=== PATIENT | male | born 2000 | race Caucasian/White ===

== ENCOUNTER 2019-10-30 16:06 | Emergency (ER) | payer BC ==
[~2019-10-30] VITALS: Ht 198.1 cm; Wt 98.9 kg
[2019-10-30 16:15] VITALS: BP 135/87
--- NOTE | 2019-10-30 16:24 | NUR ---
pt to ed. ambulatory. fell snowboarding. L low back pain. no bruise noted. fell backwards, hit back on icy spot. 10/10 pain, worse when moving. +CMS, neuros grossly intact, denies hitting head. no other complaints. A&Ox4 GCS 15. accomp by gf. awaiting md. call bahena in reach.
[2019-10-30] MEDS ORDERED: HYDROcodone/APAP 5/325 TABLET PO STA (16:47)
[2019-10-30] MEDS ORDERED: HYDROcodone/APAP 5/325 TABLET ONE (16:51)
[2019-10-30] MEDS ORDERED: CYCLOBENZAPRINE 10 MG TABLET PO STA (16:54)
[2019-10-30] MEDS ORDERED: CYCLOBENZAPRINE 10 MG TABLET ONE (16:55)
--- NOTE | 2019-10-30 17:05 | NUR ---
pt to and from rad
--- NOTE | 2019-10-30 17:31 | NUR ---
PA TO BEDSIDE TO DISCUSS RESULTS
== END 2019-10-30 18:00 | disposition home or self-care (01) ==
LOC: ED 17:55
DX: S39.012A Strain of muscle, fascia and tendon of lower back, initial encounter (principal); G89.11 Acute pain due to trauma; W18.39XA Other fall on same level, initial encounter; Y93.23 Activity, snow (alpine) (downhill) skiing, snowboarding, sledding, tobogganing and snow tubing; Y92.89 Other specified places as the place of occurrence of the external cause; Y99.8 Other external cause status
CPT/HCPCS: 71046; 72110; 99283